=== PATIENT | male | born 1945 | race Caucasian/White ===

== ENCOUNTER 2023-01-06 10:06 | Emergency (ER) | payer MEDICARE ==
--- NOTE | 2023-01-06 10:14 | ERPHSYRPT ---
- History of Present Illness Time Seen by Provider: 01/06/23 10:14 Source: patient, family Exam Limitations: no limitations Physician History: This is a 77-year-old white male [place] patient who is visiting family from [place] and presents with shortness of breath. The symptoms have been increasing over the last several days. Patient states that he is out of his hydrocortisone 20 mg each day for the last 2 months. He feels that this may be the cause of his symptoms. 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 His primary care provider through the [place] system has been called up to active duty and he has not had his hydrocortisone prescription. Patient denies cough. He has had no chest pain. He has no nausea vomiting or diarrhea symptoms. Patient has not had fevers or chills. He has not been exposed to individuals with flulike symptoms per his recollection. Patient has a history of arrhythmias, coronary artery disease (CABG/cardiac stents) hyperlipidemia, hypertension, hypothyroidism and pacemaker placed. Activities at Onset: activity Severity of Dyspnea-Max: mild Severity of Dyspnea-Current: mild Possible Cause: occasional episodes Modifying Factors: Improves With: activity Associated Symptoms: denies symptoms Allergies/Adverse Reactions: No Known Drug Allergies Allergy (Unverified 01/06/23 10:12) Home Medications: Acetaminophen [Tylenol Arthritis] 650 mg PO QID 01/06/23 [History] Amlodipine Besylate 5 mg [Norvasc 5 mg] 5 mg PO DAILY 01/06/23 [History] Atorvastatin Calcium [Lipitor] 10 mg PO DAILY 01/06/23 [History] Finasteride 5 mg [Proscar 5 MG] 5 mg PO DAILY 01/06/23 [History] Gabapentin [Gralise] 1 ea TID 01/06/23 [History] Hydrocortisone [Cortef] 20 mg PO DAILY 01/06/23 [History] Isosorbide Mononitrate 30 mg [Imdur 30 MG] 30 mg PO DAILY 01/06/23 [History] Levothyroxine Sodium [Synthroid] 175 mcg PO DAILY 01/06/23 [History] Metoprolol Tartrate 50 mg [Lopressor 50 MG] 50 mg PO BID 01/06/23 [History] Trazodone HCl 200 mg PO DAILY 01/06/23 [History] Travel Risk - International Travel Have you traveled outside of the country in past 3 weeks: No - Coronavirus Screening Are you exhibiting any of the following symptoms?: Yes Symptoms: Shortness of Breath Close contact with a COVID-19 positive Pt in past 14-21 Days: No - Review of Systems Constitutional: No Symptoms Eyes: No Symptoms Ears, Nose, & Throat: No Symptoms Respiratory: Dyspnea Cardiac: No Symptoms Abdominal/Gastrointestinal: No Symptoms Genitourinary Symptoms: No Symptoms Musculoskeletal: No Symptoms Skin: No Symptoms Neurological: No Symptoms Psychological: No Symptoms Endocrine: No Symptoms Hematologic/Lymphatic: No Symptoms Immunological/Allergic: No Symptoms All Other Systems: Reviewed and Negative - Past Medical History Pertinent Past Medical History: Yes Cardiac History: Arrhythmia, Coronary Artery Disease, High Cholesterol, Hypertension, Myocardial Infarction (ME) Endocrine Medical History: Hypothyroidism Other Medical History: ADRENAL GLAND REMOVED - Past Surgical History Past Surgical History: Yes Cardiac: CABG, Cardiac Catheterization, Cardiac Stent, Pacemaker Gastrointestinal: Cholecystectomy Musculoskeletal: Orthopedic Surgery Other Surgical History: LEFT ELBOW .TOES - Social History Drug Use: none - Nursing Vital Signs Nursing Vital Signs: Initial Vital Signs Temperature 97.0 F 01/06/23 10:16 Pulse Rate 90 01/06/23 10:16 Respiratory Rate 22 01/06/23 10:16 Blood Pressure 165/99 01/06/23 10:16 O2 Sat by Pulse Oximetry 98 01/06/23 10:16 Pain Scale Pain Intensity 0 - Physical Exam General Appearance: no apparent distress, alert Eye Exam: PERRL/EOMI, eyes nml inspection Ears, Nose, Throat Exam: hearing grossly normal, normal ENT inspection, normal pharynx Neck Exam: normal inspection, non-tender, supple, full range of motion Respiratory Exam: normal breath sounds, lungs clear, airway intact, No chest tenderness, No respiratory distress Cardiovascular/Chest Exam: normal heart sounds, regular rate/rhythm Abdominal/Gastrointestinal Exam: soft, normal bowel sounds, No tenderness Extremity Exam: non-tender, normal range of motion, normal capillary refill, no calf tenderness, no pedal edema, pelvis stable, No normal inspection Neurologic Exam: alert, oriented x 3, cooperative, authorizer II-XII nml as tested, normal mood/affect, nml cerebellar function, nml station & gait, sensation nml Skin Exam: normal color, warm, dry Lymphatic Exam: No adenopathy SpO2 Interpretation: normal O2 Delivery: Room Air - Course Nursing assessment & vital signs reviewed: Yes Ordered Tests: Active Orders 24 hr Category Date Time Status EKG-ER Only STAT Care 01/06/23 10:22 Active IV Insertion STAT Care 01/06/23 10:22 Active Pulse Oximetry (ED) STAT Care 01/06/23 10:22 Active CHEST 1 VIEW (PORTABLE) Stat Exams 01/06/23 10:22 Taken BLOOD CULTURE Stat Lab 01/06/23 10:41 Received CBC W DIFF Stat Lab 01/06/23 10:30 Completed CMP Stat Lab 01/06/23 10:30 Completed NT PRO BNPII Stat Lab 01/06/23 10:30 Completed TROPONIN Q4H Lab 01/06/23 10:30 Completed TROPONIN Q4H Lab 01/06/23 14:30 Ordered TROPONIN Q4H Lab 01/06/23 18:30 Ordered Respiratory Therapy Assessment DAILY RT 01/06/23 10:37 Completed Medication Summary Discontinued Medications Generic Name Dose Route Start Last Admin Trade Name Freq PRN Reason Stop Dose Admin Albuterol/Ipratropium 3 ml 01/06/23 10:36 01/06/23 10:42 Ipratropium/Albuterol Sulfate 3 Ml Ampul.Neb IH 01/06/23 10:37 3 ml STAT ONE Administration Albuterol/Ipratropium Confirm 01/06/23 10:39 Ipratropium/Albuterol Sulfate 3 Ml Ampul.Neb Administered 01/06/23 10:40 Dose 3 ml IH .STK-MED ONE Hydrocortisone 20 mg 01/06/23 10:26 01/06/23 10:46 Hydrocortisone 10 Mg Tablet PO 01/06/23 10:27 20 mg STAT ONE Administration Lab/Rad Data: Laboratory Result Diagrams 01/06/23 10:30 01/06/23 10:30 Laboratory Results 01/06/23 01/06/23 01/06/23 Range/Units 10:33 10:30 10:30 WBC (4.0-10.5) x10^3/uL RBC (4.1-5.6) x10^6/uL Hgb (12.5-18.0) g/dL Hct (42-50) % MCV (78-100) fL MCH (26-32) pg MCHC (32-36) g/dL RDW (11.5-14.0) % Plt Count (150-450) x10^3/uL MPV (7.5-11.0) fL Gran % (36.0-66.0) % Immature Gran % (Auto) (0.00-0.4) % Nucleat RBC Rel Count (0.00-0.1) % Eos # (Auto) (0-0.5) x10^3/uL Immature Gran # (Auto) (0.00-0.03) x10^3u/L Absolute Lymphs (auto) (1.0-4.6) x10^3/uL Absolute Monos (auto) (0.0-1.3) x10^3/uL Absolute Nucleated RBC (0.00-0.01) x10^3u/L Lymphocytes % (24.0-44.0) % Monocytes % (0.0-12.0) % Eosinophils % (0.00-5.0) % Basophils % (0.0-0.4) % Absolute Granulocytes (1.4-6.9) x10^3/uL Basophils # (0-0.4) x10^3/uL Sodium (137-145) mmol/L Potassium (3.5-5.1) mmol/L Chloride (98-107) mmol/L Carbon Dioxide (22-30) mmol/L Anion Gap (5-15) MEQ/L BUN (9-20) mg/dL Creatinine (0.66-1.25) mg/dL Estimated GFR ML/MIN Glucose (74-106) mg/dL Calcium (8.4-10.2) mg/dL Total Bilirubin (0.2-1.3) mg/dL AST (17-59) U/L ALT (0-50) U/L Alkaline Phosphatase (38-126) U/L Troponin I < 0.012 (0.000-0.034) ng/mL NT-Pro-B Natriuret Pep 1690 (<300) pg/mL Serum Total Protein (6.3-8.2) g/dL Albumin (3.5-5.0) g/dL Influenza Type A Ag NEGATIVE (NEGATIVE) Influenza Type B Ag NEGATIVE (NEGATIVE) RSV (PCR) NEGATIVE (NEGATIVE) SARS-CoV-2 (PCR) NEGATIVE (NEGATIVE) 01/06/23 01/06/23 Range/Units 10:30 10:30 WBC 7.5 (4.0-10.5) x10^3/uL RBC 5.06 (4.1-5.6) x10^6/uL Hgb 15.3 (12.5-18.0) g/dL Hct 48.1 (42-50) % MCV 95.1 (78-100) fL MCH 30.2 (26-32) pg MCHC 31.8 L (32-36) g/dL RDW 13.5 (11.5-14.0) % Plt Count 167 (150-450) x10^3/uL MPV 10.9 (7.5-11.0) fL Gran % 57.4 (36.0-66.0) % Immature Gran % (Auto) 0.3 (0.00-0.4) % Nucleat RBC Rel Count 0.0 (0.00-0.1) % Eos # (Auto) 1.10 H (0-0.5) x10^3/uL Immature Gran # (Auto) 0.02 (0.00-0.03) x10^3u/L Absolute Lymphs (auto) 1.19 (1.0-4.6) x10^3/uL Absolute Monos (auto) 0.78 (0.0-1.3) x10^3/uL Absolute Nucleated RBC 0.00 (0.00-0.01) x10^3u/L Lymphocytes % 15.8 L (24.0-44.0) % Monocytes % 10.4 (0.0-12.0) % Eosinophils % 14.6 H (0.00-5.0) % Basophils % 1.5 (0.0-0.4) % Absolute Granulocytes 4.33 (1.4-6.9) x10^3/uL Basophils # 0.11 (0-0.4) x10^3/uL Sodium 138 (137-145) mmol/L Potassium 3.9 (3.5-5.1) mmol/L Chloride 104 (98-107) mmol/L Carbon Dioxide 26 (22-30) mmol/L Anion Gap 11.6 (5-15) MEQ/L BUN 13 (9-20) mg/dL Creatinine 0.70 (0.66-1.25) mg/dL Estimated GFR 96.1 ML/MIN Glucose 97 (74-106) mg/dL Calcium 9.2 (8.4-10.2) mg/dL Total Bilirubin 0.60 (0.2-1.3) mg/dL AST 22 (17-59) U/L ALT 25 (0-50) U/L Alkaline Phosphatase 58 (38-126) U/L Troponin I (0.000-0.034) ng/mL NT-Pro-B Natriuret Pep (<300) pg/mL Serum Total Protein 7.3 (6.3-8.2) g/dL Albumin 4.1 (3.5-5.0) g/dL Influenza Type A Ag (NEGATIVE) Influenza Type B Ag (NEGATIVE) RSV (PCR) (NEGATIVE) SARS-CoV-2 (PCR) (NEGATIVE) - Progress Progress: improved, re-examined Air Movement: good Progress Note: 01/06/23 10:34 This patient's medical issue is 1 of moderate complexity. Level complexity in the workup performed is based on review the patient's past medical history, review the patient's medication list, review the patient's drug allergy list, history present illness and physical findings on examination. Workup includes placement of intravenous line, twelve-lead EKG, BNP, troponin level, CBC, CMP and chest x-ray. 01/06/23 11:23 Chest x-ray was interpreted by me. There were no comparison films. Questionable right perihilar opacities. 01/06/23 12:08 I reviewed and interpreted the patient's laboratory data results. Patient's BNP is slightly elevated and I will give him a dose of Lasix here in the emergency department. I will also provide him with a gram of Rocephin intravenously to treat the questionable right perihilar opacity. The patient is out of his hydrocortisone 20 mg daily. I will write for 30-day supply for him. He will travel back to [place] and make an appointment with his primary care provider to continue prescribing that medication if indicated. Antibiotics given: Yes Counseled pt/family regarding: lab results, diagnosis, need for follow-up, rad results Medical Desision Making - Independent Historian Additional History obtained from: Family, Relative/friend - Diagnostic Testing Diagnostic test were ordered, analyzed, and reviewed by me: Yes Radiological Interpretation: Interpreted by me, Teleradiologist Report - Risk of complications The pt has a mod risk of morbidity or mortality based on: Need for prescription drug management - Departure Departure Disposition: Home Clinical Impression: Respiratory infection, Medication refill Condition: Stable Critical Care Time: No Additional Instructions: Drink plenty of fluids. Take your medication as prescribed. Follow-up with your primary care provider for further evaluation management. Prescriptions: Cefdinir 300 mg PO BID #14 cap Hydrocortisone 20 mg PO DAILY #30 tablet
[2023-01-06 10:17] VITALS: TEMP 97
[2023-01-06] MEDS ORDERED: HYDROCORTISONE PO ONE (10:26)
[2023-01-06] MEDS ORDERED: DUONEB 0.5-3 MG/3 ml Neb IH ONE ×2 (10:36→10:39)
[2023-01-06 10:48] LABS: Absolute Neutrophil Ct (ANC) 4.33 x10^3/uL (1.4-6.9); BASOPHIL % 1.5 % (0.0-0.4); Basophil (Absolute #) 0.11 x10^3/uL (0-0.4); Eosinophil % 14.6 % (0.00-5.0); Hematocrit 48.1 % (42-50); Hemoglobin 15.3 g/dL (12.5-18.0); IMMATURE GRAN # 0.02 x10^3u/L (0.00-0.03); IMMATURE GRAN % 0.3 % (0.00-0.4); Lymphocyte (Absolute #) 1.19 x10^3/uL (1.0-4.6); Lymphocytes % 15.8 % (24.0-44.0); Mean Cell Volume 95.1 fL (78-100); Mean Corpuscular Hemoglobin 30.2 pg (26-32); Mean Corpuscular Hgb Concent. 31.8 g/dL (32-36); Mean Platelet Volume 10.9 fL (7.5-11.0); Monocyte (Absolute #) 0.78 x10^3/uL (0.0-1.3); Monocytes % 10.4 % (0.0-12.0); Neutrophil % 57.4 % (36.0-66.0); Platelet Count 167 x10^3/uL (150-450); Red Blood Count 5.06 x10^6/uL (4.1-5.6); Red Cell Distribution Width 13.5 % (11.5-14.0); White Blood Count 7.5 x10^3/uL (4.0-10.5)
[2023-01-06 11:01] LABS: ALBUMIN 4.1 g/dL (3.5-5.0); ANION GAP 11.6 MEQ/L (5-15); BILIRUBIN,TOTAL 0.6 mg/dL (0.2-1.3); Calcium 9.2 mg/dL (8.4-10.2); Creatinine 1 0.7 mg/dL (0.66-1.25); EST GLOMERULAR FILTRATION RATE 96.1 ML/MIN; Potassium 3.9 mmol/L (3.5-5.1); Total Protein 7.3 g/dL (6.3-8.2)
[2023-01-06 11:24] LABS: INFLUENZA A NEGATIVE (NEGATIVE); INFLUENZA B NEGATIVE (NEGATIVE); RESPIRATORY SYNCTIAL VIRUS NEGATIVE (NEGATIVE); SARS-CoV-2 Xpert Express NEGATIVE (NEGATIVE)
[2023-01-06] MEDS ORDERED: Lasix 40 MG/4 ML IV ONE (12:07)
[2023-01-06] MEDS ORDERED: ROCEPHIN 1 Gm-D5w 50 ml Bag** 1 G/50 ML IVPB IV STA (12:07)
[2023-01-06] MEDS ORDERED: solu-CORTEF 100MG IV ONE (12:16)
[2023-01-06] MEDS ORDERED: solu-CORTEF 100MG ONE (12:20)
[2023-01-06] MEDS ORDERED: ROCEPHIN 1 Gm-D5w 50 ml Bag** 1 G/50 ML IVPB IV ONE (12:20)
[2023-01-06] MEDS ORDERED: Lasix 40 MG/4 ML ONE (12:20)
[2023-01-06 13:11] VITALS: BP 164/94; PULSE 60; RESP 21; O2SAT 88
--- NOTE | 2023-01-06 21:08 | XRAY ---
Indication: Short of breath. Comparison: None Portable chest inflated with left perihilar surgical clips and postsurgical changes. No focal infiltrate, consolidation, or large effusion. Heart not enlarged for AP portable technique with left dual-lead pacemaker. Bony thorax intact with osteopenia, old right clavicle fracture, and old left 4-6 rib fractures. Impression: Nonacute chest with chronic features.
== END 2023-01-06 13:00 | disposition left against medical advice (07) ==
LOC: ED 10:06
DX: J98.8 Other specified respiratory disorders (principal); Z76.0 Encounter for issue of repeat prescription; R06.02 Shortness of breath; E78.5 Hyperlipidemia, unspecified; I10 Essential (primary) hypertension; Z79.52 Long term (current) use of systemic steroids; Z79.899 Other long term (current) drug therapy
CPT/HCPCS: 0241U; 36000; 36415; 71045; 80053; 83880; 84484; 85025; 87040; 93005; 94640; 94760; 96365; 96374; 99284; J0696; J1720; J1940; A9270-GY